=== PATIENT | female | born 1940 | race Native Hawaiian/Other Pacific Islander ===

== ENCOUNTER 2017-10-06 21:38 | Emergency (ER) | payer MEDICARE ==
--- NOTE | 2017-10-06 21:45 | ED PDOC ---
Arrival/HPI - General Time Seen by Provider: 10/06/17 21:44 Historian: Patient - History of Present Illness Narrative History of Present Illness (Text): 10/06/17 21:44 77 y/o female, c/o q-tip stuck in the lt. ear canal x 1 hour. Pt. was cleaning the lt. ear at home with the q-tip, stated that the q-tip stuck in the lt. ear canal, no pain, no dizziness, no blood discharge, no headache or night sweat, no rash, no other medical or psychological complaints. Past Medical History - Provider Review Nursing Documentation Reviewed: Yes Family/Social History - Physician Review Nursing Documentation Reviewed: Yes Family/Social History: Unknown Family HX Allergies/Home Meds Allergies/Adverse Reactions: Allergies No Known Allergies Allergy (Unverified 07/19/13 11:24) Review of Systems - Review of Systems Constitutional: absent: Fatigue, Fevers Eyes: absent: Vision Changes ENT: Other (Lt. ear foreign body sensation). absent: Hearing Changes Respiratory: absent: SOB, Cough Cardiovascular: absent: Chest Pain Gastrointestinal: absent: Abdominal Pain, Nausea, Vomiting Skin: absent: Rash, Pruritis, Skin Lesions Neurological: absent: Headache, Dizziness Psychiatric: absent: Anxiety, Depression, Suicidal Ideation Physical Exam - Systems Exam Head: Present: Atraumatic, Normocephalic Pupils: Present: PERRL Extroacular Muscles: Present: EOMI Conjunctiva: Present: Normal Ears: Present: Other (Ears: lt. auditory canal visible q-tip noted with no active bleeding or discharge. ) Mouth: Present: Moist Mucous Membranes Neck: Present: Normal Range of Motion Respiratory/Chest: Present: Clear to Auscultation, Good Air Exchange. No: Respiratory Distress, Accessory Muscle Use Cardiovascular: Present: Regular Rate and Rhythm, Normal S1, S2. No: Murmurs Abdomen: Present: Normal Bowel Sounds. No: Tenderness, Distention, Peritoneal Signs Back: Present: Normal Inspection Upper Extremity: Present: Normal Inspection. No: Cyanosis, Edema Lower Extremity: Present: Normal Inspection. No: Edema Neurological: Present: GCS=15, Speech Normal, Motor Func Grossly Intact, Gait Normal, Memory Normal Skin: Present: Warm, Dry, Normal Color. No: Rashes Psychiatric: Present: Alert, Oriented x 3, Normal Insight, Normal Concentration Medical Decision Making ED Course and Treatment: 10/06/17 22:01 -q-tip removed the lt. ear with direct opthalmolscop and alligator forcep with 1 try, no visible further foreign bodies. -Ears re-examined and show the following: bilateral TMs obdulia color and intact, bilateral auditory canals non-erythematous with no abrasion/laceration or foreign bodies, no mastoid tenderness. -Discharge home with education on avoid using the q-tip, follow up with your own pmd and ENT within 2 days, return to the ER for any new or worsening signs or symptoms. 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 Disposition/Present on Arrival - Present on Arrival Any Indicators Present on Arrival: No History of DVT/PE: No History of Uncontrolled Diabetes: No Urinary Catheter: No History of Decub. Ulcer: No - Disposition Have Diagnosis and Disposition been Completed?: Yes Diagnosis: Foreign body in ear Disposition: HOME/ ROUTINE Disposition Time: 22:03 Patient Plan: Discharge Condition: IMPROVED Additional Instructions: -Discharge home with education on avoid using the q-tip, follow up with your own pmd and ENT within 2 days, return to the ER for any new or worsening signs or symptoms. Referrals: José Miguel Rodriguez DO [Staff Provider] - Follow up with primary Forms: WORK NOTE
[2017-10-06 22:12] VITALS: BMI 23.0
[2017-10-06 22:16] VITALS: BP 105/71; RESP 17; TEMP 98.2; O2SAT 98
[2017-10-06 22:19] VITALS: PULSE 71
== END 2017-10-06 22:19 | disposition home or self-care (01) ==
LOC: ED 21:38
DX: T16.2XXA Foreign body in left ear, initial encounter (principal); X58.XXXA Exposure to other specified factors, initial encounter; Y93.E8 Activity, other personal hygiene; Y92.009 Unspecified place in unspecified non-institutional (private) residence as the place of occurrence of the external cause